=== PATIENT | female | born 1975 | race African-American/Black ===

== ENCOUNTER → 2016-04-11 | Day surgery (SDC) | payer OTHER ==
[~2016-04-11] MED LIST: BUPIVACAINE HCL PF 0.25% 30 ML VIAL ONE; KETOROLAC TROMETHAMINE 30 MG/ML (IVP) VIAL IV PUSH ONE; LACTATED RINGER'S 1000 ML INJ 1,000 ML ONE; MIDAZOLAM HCL 2 MG/2 ML VIAL ONE; ONDANSETRON HCL 4 MG/2 ML VIAL IV PUSH ONE; PROPOFOL 200 MG/20 ML AMP IV ONE; ceFAZolin 2 GM PREMIX 50 ML ONE
--- NOTE | 2016-04-12 15:18 | MP ---
cc: JOSR GREER M.D. DATE OF SURGERY: 04/11/2016 PREOPERATIVE DIAGNOSIS Menorrhagia, uterine fibroid, elective sterilization. PROCEDURE Exam under anesthesia, diagnostic laparoscopy with bilateral tubal ligation using Kleppinger technique, hysteroscopy with endometrial ablation, endometrial curettage. POSTOPERATIVE DIAGNOSIS Menorrhagia, uterine fibroid, elective sterilization. ANESTHESIA General LMA. ESTIMATED BLOOD LOSS None. DRAINS None. OPERATIVE FINDINGS The patient had normal-appearing endometrial cavity. Measurements were set at 9 cm in depth and 4.3 cm in width. The laparoscopic findings demonstrated a 6 cm posterior transmural uterine myoma, otherwise no other abnormalities were evident on the fallopian tubes, ovaries or pelvis. The upper quadrants were reviewed as well with no obvious abnormality present. DETAILS OF PROCEDURE The patient was taken to the operating room. She received Ancef two grams prophylactically. She underwent general anesthesia with LMA placement. She was carefully positioned in the dorsal lithotomy position using Med stirrups. She had sequentials placed on the extremities for VTE prophylaxis. She was prepped and draped, carefully positioned with appropriate padding. A timeout was conducted and agreed by all present in the room. The exam continued by draining the bladder of about 25 cc of clear urine with a red Andujar catheter. A single-tooth tenaculum was attached to the cervix after visualization with a bivalve retractor. A uterine sound was placed to about 9+ centimeters. The cervix was dilated to accommodate a Hulka tenaculum for manipulation. The retractor was removed. Gloves were changed. The abdomen was examined. 0.25% plain Marcaine was used to inject the incision sites. The umbilical site was chosen first, injecting with about 4 cc of 0.25% plain Marcaine and then making a small stab wound within the umbilical plate. A 5 mm visible port trocar was then placed into the peritoneal cavity without complication. Insufflation was initiated at low pressure and then raised to high pressure. The patient was placed in Trendelenburg positioning. Visualization of the pelvic anatomy was noted above. A suprapubic port was placed in the same technique using a 5 mm trocar and 0.25% plain Marcaine. The Kleppinger was used to electrodesiccate each fallopian tube bilaterally for a segment of about 4 cm starting from the cornua down to the ampulla. No complication incurred. After completion of the tubal ligation the pneumoperitoneum was decompressed, the trocars were removed and the incisions were closed with a subcuticular suture of 4-0 Monocryl. Steri-Strips were placed over the incision. Full count was made and correct. The cervix was then reexamined with a bivalve retractor. The Hulka tenaculum was removed. A 5 mm hysteroscope was used to examine the endometrial cavity using normal saline. The cavity was described above. No focal abnormality. No space-occupying lesion. No perforation. The NovaSure device was utilized. Measurements were set at 6.5 and 4.3. The generator calculated an energy of 154 gifford. Complete electrodesiccation of the cavity was noted after re-examination. Endometrial curettings were obtained prior to that. At the completion of the case there was no active bleeding. The patient was stable. All instruments were removed and accounted for. The final count was correct. The patient was extubated on room air and taken to the recovery room. MD JHONATHAN Joshi/JUANA /8:25 AM /3:08 PM
== END | disposition home or self-care (01) ==
LOC: ESDC 06:44
PROVIDERS: ATTEND Obstetrics & Gynecology
DX: N92.0 Excessive and frequent menstruation with regular cycle (principal); D25.9 Leiomyoma of uterus, unspecified; Z30.2 Encounter for sterilization
CPT/HCPCS: 00851; 00952; 58563; 58670; 88305; J0690; J1885; J2250; J2405; J3010; J7120